=== PATIENT | female | born 1955 ===

== ENCOUNTER 2018-03-02 08:19 | Day surgery (SDC) | payer OTHER ==
[2018-03-02] MEDS ORDERED: AMOX1TAB5 PO (13:46)
[2018-03-02] MEDS ORDERED: NAPROXEN SODIU550 M1 PO (13:46)
== END 2018-03-02 16:35 | disposition home or self-care, planned readmission (81) ==
LOC: CIR.AMB 08:19
DX: N84.0 Polyp of corpus uteri (principal)

== ENCOUNTER 2021-08-02 06:00 | Day surgery (SDC) | payer OTHER ==
[~2021-08-02 06:00] MED LIST: AMOX1TAB5 PO; NAPROXEN SODIU550 M1 PO
[2021-08-02] MEDS ORDERED: RECTICARE30 GM TOP (08:24)
[2021-08-02] MEDS ORDERED: ULTRACET PO (08:25)
== END 2021-08-02 12:40 | disposition home or self-care (01) ==
LOC: CIR.AMB 06:00
PROVIDERS: ATTEND Surgery
DX: D12.8 Benign neoplasm of rectum (principal); Z20.822 Contact with and (suspected) exposure to COVID-19